=== PATIENT | male | born 1995 | race Caucasian/White ===

== ENCOUNTER 2017-01-03 15:06 | Emergency (ER) | payer OTHER, SELFPAY ==
[~2017-01-03] VITALS: Ht 170.2 cm; Wt 59.0 kg
[~2017-01-03 15:06] MED LIST: ABIL2TAB; ADDE10TA; HYDR25TA8; PROZ10CA
[2017-01-03 15:07] VITALS: BP 111/61
[2017-01-03] MEDS ORDERED: CLEO300C2 PO (16:26)
[2017-01-03] MEDS ORDERED: CLINDAMYCIN 150 MG CAP PO ONE (16:30)
== END 2017-01-03 16:33 | disposition home or self-care (01) ==
LOC: M ED 16:08
DX: L02.211 Cutaneous abscess of abdominal wall (principal); Z86.14 Personal history of Methicillin resistant Staphylococcus aureus infection; F17.200 Nicotine dependence, unspecified, uncomplicated; Z88.0 Allergy status to penicillin; Z88.8 Allergy status to other drugs, medicaments and biological substances

== ENCOUNTER 2018-02-05 01:50 | Emergency (ER) | payer SELFPAY ==
[2018-02-05 02:50] LABS: INFLUENZA A AMPLIFICATION NEGATIVE (NEGATIVE); INFLUENZA B AMPLIFICATION NEGATIVE (NEGATIVE)
[2018-02-05] MEDS: ONDANSETRON 4 MG ORAL DISINTEGRATING TAB (S0181) PO (05:09)
[2018-02-05] MEDS: KETOROLAC 30 MG/ML VIAL (J1885) IM (05:10)
[2018-02-05] MEDS: GI COCKTAIL 50ML BTL(HYOSCYAMINE/MAALOX/LIDOCAINE VISCOUS)(1:3:1) PO (05:11)
== END 2018-02-05 05:27 | disposition home or self-care (01) ==
LOC: M ED 01:50
DX: A08.4 Viral intestinal infection, unspecified (principal); F17.200 Nicotine dependence, unspecified, uncomplicated; Z88.0 Allergy status to penicillin
CPT/HCPCS: J1885

== ENCOUNTER 2018-05-09 04:31 | Emergency (ER) | payer OTHER, MEDICAID ==
[2018-05-09] MEDS: IBUPROFEN 600 MG TAB PO (07:40)
== END 2018-05-09 07:49 | disposition home or self-care (01) ==
LOC: M ED 04:31
DX: S60.222A Contusion of left hand, initial encounter (principal); W22.09XA Striking against other stationary object, initial encounter; Y92.096 Garden or yard of other non-institutional residence as the place of occurrence of the external cause; F17.200 Nicotine dependence, unspecified, uncomplicated; Z88.0 Allergy status to penicillin
CPT/HCPCS: 73130

== ENCOUNTER 2018-06-07 01:52 | Emergency (ER) | payer OTHER | END 2018-06-07 03:34 | disposition home or self-care (01) | LOC: M ED 01:52 | DX: S60.221A Contusion of right hand, initial encounter (principal); W22.8XXA Striking against or struck by other objects, initial encounter; Y92.89 Other specified places as the place of occurrence of the external cause; Z88.0 Allergy status to penicillin; F17.210 Nicotine dependence, cigarettes, uncomplicated | CPT/HCPCS: 73130 ==

== ENCOUNTER 2018-08-20 12:33 | Emergency (ER) | payer OTHER ==
[2018-08-20] MEDS: ONDANSETRON 4MG/2ML VIAL (J2405) IV (13:27)
[2018-08-20 13:28] LABS: BASO # 0.1 10^3/uL (0.0-0.2); BASO % 0.2 % (0.0-1.0); EOS # 0.1 10^3/uL (0.0-0.50); EOS % 0.2 % (0.0-3.0); HEMOGLOBIN 17.3 g/dl (13.5-17.5); IMMATURE GRANULOCYTE % 0.6 % (0-3.0); LYMPH # 1.5 10^3/uL (1.5-6.5); LYMPH % 7.2 % (24.0-44.0); MEAN CORPUSCULAR HEMOGLOBIN 30.3 pg (27.0-33.0); MEAN CORPUSCULAR HGB CONC 33.9 g/dl (32.0-36.5); MEAN CORPUSCULAR VOLUME 89.3 fl (80.0-96.0); MONO # 1.6 10^3/uL (0.0-0.8); MONO % 7.8 % (0.0-5.0); NEUTROPHILS # 17.1 10^3/uL (1.8-7.7); PLATELET COUNT, AUTOMATED 279 10^3/uL (150-450); RED BLOOD COUNT 5.71 10^6/uL (4.30-6.10); WHITE BLOOD COUNT 20.4 10^3/uL (4.0-10.0)
[2018-08-20] MEDS: NS 1,000 ML IV (13:28)
[2018-08-20 14:05] LABS: ALBUMIN 5.1 GM/DL (3.2-5.2); ALKALINE PHOSPHATASE 79 U/L (45-117); ALT/SGPT 33 U/L (12-78); AMYLASE 39 U/L (25-115); ANION GAP 11 MEQ/L (8-16); AST/SGOT 31 U/L (7-37); BILIRUBIN,DIRECT 0.3 MG/DL (0.0-0.2); BLOOD UREA NITROGEN 18 MG/DL (7-18); CALCIUM LEVEL 10.3 MG/DL (8.5-10.1); CARBON DIOXIDE LEVEL 25 MEQ/L (21-32); CHLORIDE LEVEL 104 MEQ/L (98-107); CREATININE FOR GFR 1.15 MG/DL (0.70-1.30); GLUCOSE, FASTING 97 MG/DL (70-100); LIPASE 50 U/L (73-393); POTASSIUM SERUM 4.6 MEQ/L (3.5-5.1); SODIUM LEVEL 140 MEQ/L (136-145); TOTAL PROTEIN 8.5 GM/DL (6.4-8.2)
[2018-08-20] MEDS ORDERED: ISOVUE-370 76% 100ML VIAL (Q9967) As Ordered (14:07)
[2018-08-20 15:09] LABS: KETONE, URINE AUTO RFX 2+ mg/dL (NEGATIVE); LEUKOCYTE ESTERASE UR AUTO RFX NEGATIVE (NEGATIVE); MUCUS, URINE RFX SMALL (NEGATIVE); NITRITE, URINE AUTO RFX NEGATIVE (NEGATIVE); RBC, URINE AUTO RFX 0 /HPF (0-3); SPECIFIC GRAVITY UR AUTO RFX 1.059 (1.002-1.035); SQUAM EPITHELIAL CELL UR AURFX 0 /HPF (0-6); WBC, URINE AUTO RFX 1 /HPF (0-3)
[2018-08-20] MEDS: IBUPROFEN 800 MG TAB PO (16:26)
[2018-08-20] MEDS: ONDANSETRON 4 MG ORAL DISINTEGRATING TAB (Q0162 PER 1MG) PO (16:52)
== END 2018-08-20 16:57 | disposition home or self-care (01) ==
LOC: M ED 12:33
DX: R11.2 Nausea with vomiting, unspecified (principal); R19.7 Diarrhea, unspecified; Z88.0 Allergy status to penicillin
CPT/HCPCS: J2405

== ENCOUNTER 2018-09-29 17:03 | Emergency (ER) | payer OTHER | END 2018-09-29 21:02 | disposition left against medical advice (07) | LOC: M ED 17:03 | DX: S99.919A Unspecified injury of unspecified ankle, initial encounter (principal); X58.XXXA Exposure to other specified factors, initial encounter; Y92.9 Unspecified place or not applicable; Y93.9 Activity, unspecified; Y99.9 Unspecified external cause status; Z53.21 Procedure and treatment not carried out due to patient leaving prior to being seen by health care provider ==

== ENCOUNTER 2019-07-06 01:22 | Emergency (ER) | payer OTHER ==
[~2019-07-06] VITALS: Ht 172.7 cm; Wt 65.9 kg
[~2019-07-06 01:22] MED LIST changes: +CLEO300C2 PO; +DOXY100C37 PO; +IBUP80TA PO; +ZOFR4TAB14 PO
[2019-07-06 01:23] VITALS: BP 128/62
[2019-07-06] MEDS ORDERED: BACT800T5 PO (01:51)
[2019-07-06] MEDS ORDERED: BACTRIM 160MG/800MG DS TAB PO ONE (02:00)
[2019-07-06 02:22] LABS: HEMATOCRIT 43.5 % (42.0-52.0); HEMOGLOBIN 14.8 g/dl (13.5-17.5); MEAN CORPUSCULAR HEMOGLOBIN 30.2 pg (27.0-33.0); MEAN CORPUSCULAR VOLUME 88.8 fl (80.0-96.0); PLATELET COUNT, AUTOMATED 224 10^3/uL (150-450); WHITE BLOOD COUNT 5.8 10^3/uL (4.0-10.0)
== END 2019-07-06 02:30 | disposition home or self-care (01) ==
LOC: M ED 01:22
DX: L03.116 Cellulitis of left lower limb (principal); Z86.14 Personal history of Methicillin resistant Staphylococcus aureus infection; Z88.1 Allergy status to other antibiotic agents; F12.90 Cannabis use, unspecified, uncomplicated; F17.210 Nicotine dependence, cigarettes, uncomplicated; Z79.899 Other long term (current) drug therapy

== ENCOUNTER 2019-08-06 16:01 | Emergency (ER) | payer OTHER ==
[~2019-08-06] VITALS: Ht 172.7 cm; Wt 63.6 kg
[~2019-08-06 16:01] MED LIST changes: +BACT800T5 PO
[2019-08-06] MEDS ORDERED: LIDOCAINE 2% MDV 20 ML VIAL SC ONE (18:30)
[2019-08-06] MEDS ORDERED: BACT800T5 PO (18:58)
[2019-08-06] MEDS ORDERED: ADACEL/BOOSTRIX VACCINE (DIPHTH/PERTUSS/ACELL/TETANUS)0.5ML SYR (90715) IM ONE (19:00)
[2019-08-06 19:21] VITALS: BP 130/74
== END 2019-08-06 19:22 | disposition home or self-care (01) ==
LOC: M ED 16:01 → EDBD 16:01 → M ED 19:22
DX: S61.412A Laceration without foreign body of left hand, initial encounter (principal); W26.0XXA Contact with knife, initial encounter; Y93.G1 Activity, food preparation and clean up; Y92.000 Kitchen of unspecified non-institutional (private) residence as the place of occurrence of the external cause; F17.210 Nicotine dependence, cigarettes, uncomplicated; Z88.0 Allergy status to penicillin; Z88.1 Allergy status to other antibiotic agents

== ENCOUNTER → 2019-11-28 | Outpatient (REF) | payer OTHER ==
[2019-11-28 22:18] LABS: INFLUENZA A AMPLIFICATION NEGATIVE (NEGATIVE); INFLUENZA B AMPLIFICATION POSITIVE (NEGATIVE)
== END ==
LOC: M LAB REF 15:37
PROVIDERS: ATTEND Physician Assistant
DX: J10.1 Influenza due to other identified influenza virus with other respiratory manifestations (principal)

== ENCOUNTER 2021-03-23 04:57 | Emergency (ER) | payer OTHER | END 2021-03-23 05:07 | disposition left against medical advice (07) | LOC: M ED 04:57 | DX: Z53.21 Procedure and treatment not carried out due to patient leaving prior to being seen by health care provider (principal) ==

== ENCOUNTER 2024-09-25 00:01 | Emergency (ER) | payer BC, MEDICAID, OTHER, SELFPAY ==
[~2024-09-25] VITALS: Ht 172.7 cm; Wt 63.6 kg
[~2024-09-25 00:01] MED LIST changes: +DOXY-441 PO; -DOXY100C37 PO
[2024-09-25 00:13] VITALS: BP 157/85; TEMP 97.3; O2SAT 98
== END 2024-09-25 00:50 | disposition left against medical advice (07) ==
LOC: EDBD 00:01 → M ED 00:01
DX: S02.2XXA Fracture of nasal bones, initial encounter for closed fracture (principal); H05.222 Edema of left orbit; V49.50XA Passenger injured in collision with unspecified motor vehicles in traffic accident, initial encounter; F10.10 Alcohol abuse, uncomplicated; M25.78 Osteophyte, vertebrae; M50.31 Other cervical disc degeneration, high cervical region; Z88.0 Allergy status to penicillin; Z88.1 Allergy status to other antibiotic agents; Y92.410 Unspecified street and highway as the place of occurrence of the external cause; Y93.89 Activity, other specified; Y99.9 Unspecified external cause status; Z53.9 Procedure and treatment not carried out, unspecified reason

== ENCOUNTER 2025-08-03 04:11 | Emergency (ER) | payer SELFPAY ==
[~2025-08-03] VITALS: Ht 170.2 cm; Wt 67.3 kg
[2025-08-03 04:17] VITALS: BP 143/90; TEMP 97.6; O2SAT 98
== END 2025-08-03 04:52 | disposition left against medical advice (07) ==
LOC: M ED 04:11
DX: Z53.21 Procedure and treatment not carried out due to patient leaving prior to being seen by health care provider (principal)

== ENCOUNTER 2025-08-03 18:59 | Emergency (ER) | payer OTHER, SELFPAY ==
[~2025-08-03] VITALS: Ht 170.2 cm; Wt 63.6 kg
[2025-08-03 19:01] VITALS: BP 137/88; TEMP 97.1; O2SAT 99
[2025-08-03] MEDS: LIDOCAINE W/EPINEPHrine 1% 20 ML VIAL SC ONE (20:05)
[2025-08-03] MEDS: TETANUS/DIPHTH/ACEL. PERTUSSIS 0.5 ML SYR IM.IMMUN ONE (20:29)
[2025-08-03] MEDS: NEOSPORIN TOP OINT 15 GM TOP ONE (20:35)
== END 2025-08-03 20:53 | disposition home or self-care (01) ==
LOC: M ED 18:59
DX: S71.111A Laceration without foreign body, right thigh, initial encounter (principal); X78.9XXA Intentional self-harm by unspecified sharp object, initial encounter; F17.200 Nicotine dependence, unspecified, uncomplicated; Z88.0 Allergy status to penicillin; Z88.1 Allergy status to other antibiotic agents; Z23 Encounter for immunization; Y92.9 Unspecified place or not applicable; Y93.9 Activity, unspecified; Y99.9 Unspecified external cause status